=== PATIENT | female | born 1980 | race African-American/Black ===

== ENCOUNTER 2016-09-11 15:15 | Emergency (ER) | payer OTHER ==
[~2016-09-11] VITALS: Ht 172.7 cm; Wt 97.7 kg
[~2016-09-11 15:15] MED LIST: GLUCOPHAGE500 MG/TAB PO; HCTZ12.5TAB PO; NO HOME MEDICATIONS; NORCO 325 MG-51 TAB PO; PRENATAL VITAMI1 TA5 PO
[2016-09-11] MEDS ORDERED: ULTRAM 50MG TAB50 MG PO (17:17)
[2016-09-11] MEDS ORDERED: CLEOCIN HC150 MG/CAP PO (17:17)
[2016-09-11 17:44] LABS: BASO # 0.1 (0.0-0.2); BASO % 0.5 % (0.0-2.0); EOS # 0.1 (0.0-0.7); EOS % 1.2 % (0-4.0); GRAN # 7.6 (1.4-6.5); GRAN % 75.9 % (42.2-75.2); HEMATOCRIT 33.3 % (37.0-47.0); HEMOGLOBIN 10.7 g/dl (12.5-16.0); LYMPH # 1.7 (1.2-3.4); LYMPH % 16.9 % (20.0-51.0); MEAN CELL VOLUME 74 fl (80.0-100.0); MEAN CORPUSCULAR HEMOGLOBIN 24 pg (27.0-31.0); MEAN CORPUSCULAR HGB CONC 32 g/dl (33.0-37.0); MONO # 0.5 (0.1-0.6); MONO % 5.1 % (1.7-9.3); PLATELET COUNT 295 K/mm3 (130-400); REDCELL DISTRIBUTION WIDTH-CV 15.1 % (11.5-14.5)
[2016-09-11 17:58] LABS: CALCIUM 8.8 mg/dL (8.4-10.2); CREATININE, serum 0.75 mg/dL (0.52-1.25)
[2016-09-11 18:01] LABS: POTASSIUM 2.7 mmol/L (3.4-5.0)
[2016-09-11 23:17] VITALS: BP 180/117; PULSE 92; TEMP 97.9
== END 2016-09-11 23:25 | disposition home or self-care (01) ==
LOC: COL.ER 15:15
PROVIDERS: Physician Assistant
DX: J36 Peritonsillar abscess (principal); E87.6 Hypokalemia; F17.210 Nicotine dependence, cigarettes, uncomplicated
CPT/HCPCS: J1170; J1885; J7030; J8540

== ENCOUNTER 2021-02-22 18:12 | Emergency (ER) | payer OTHER ==
[~2021-02-22] VITALS: Ht 172.7 cm; Wt 94.1 kg
[~2021-02-22 18:12] MED LIST changes: +CLEOCIN HC150 MG/CAP PO; +ULTRAM 50MG TAB50 MG PO
[2021-02-22 18:20] VITALS: TEMP 98
[2021-02-22] MEDS ORDERED: MOBIC15 MG PO (18:44)
[2021-02-22 19:02] VITALS: BP 202/124; PULSE 86
[2021-04-04] MEDS ORDERED: K-DUR20 MEQ PO (14:59)
[2021-04-04] MEDS ORDERED: NORVASC 5MG5 MG/TAB PO (14:59)
== END 2021-02-22 19:02 | disposition home or self-care (01) ==
LOC: COL.ER 18:12
DX: G56.01 Carpal tunnel syndrome, right upper limb (principal); I10 Essential (primary) hypertension; Z79.899 Other long term (current) drug therapy

== ENCOUNTER 2021-04-14 15:30 | Outpatient (RCR) | payer OTHER ==
[2021-04-04 15:06] VITALS: BP 116/80; PULSE 86; TEMP 98.2
[2021-04-07 15:46] VITALS: BP 154/103; PULSE 79; TEMP 98
[2021-04-09 16:15] VITALS: BP 150/94; PULSE 67; TEMP 98.5
[2021-04-11 16:50] VITALS: BP 122/79; PULSE 67; TEMP 98.5
[~2021-04-14] VITALS: Ht 172.7 cm; Wt 98.3 kg
[2021-04-14 15:24] VITALS: BP 141/83; PULSE 78; TEMP 97.9
[~2021-04-14 15:30] MED LIST changes: +K-DUR20 MEQ PO; +MOBIC15 MG PO; +NORVASC 5MG5 MG/TAB PO
== END 2021-04-14 16:17 | disposition still patient (30) ==
LOC: EUO 15:30
DX: D64.9 Anemia, unspecified (principal)
CPT/HCPCS: J1756